=== PATIENT | male | born 1975 | race Caucasian/White ===

== ENCOUNTER 2023-12-27 09:57 | Emergency (ER) | payer SELFPAY ==
[2023-12-27] MEDS: Acetaminophen/HYDROcodone 325-10 MG Tab PO ONE (12:06)
[2023-12-27] MEDS: Ketorolac 60 MG/2 ML SDV IM ONE (12:06)
== END 2023-12-27 13:20 | disposition home or self-care (01) ==
LOC: JD.ED 09:57 → EDBD 09:57 → EDSEX 09:57 → JD.ED 13:20
DX: S82.891A Other fracture of right lower leg, initial encounter for closed fracture (principal); S82.831A Other fracture of upper and lower end of right fibula, initial encounter for closed fracture; S93.401A Sprain of unspecified ligament of right ankle, initial encounter; W19.XXXA Unspecified fall, initial encounter
CPT/HCPCS: 29515; 73562; 73610; 96372; 99284; A9270; J1885